=== PATIENT | male | born 1965 ===

== ENCOUNTER 2025-03-11 12:44 | Outpatient (AMB) | payer OTHER, SELFPAY ==
--- NOTE | 2025-03-11 12:51 | A.OFFPC_ITS ---
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 ?? Prior PCP:Anthony Sheridan Last office visit/CPE:? Apr 2024 Acute issue(s):? Flu Shot ?? PMHx:?afib Dr Glez, HTN, HLD, Arthritis (Dr Loredo). Lipomas. SurgHx:?Ulnar Nerve Transloc. L thumb FHx:? Mom: Breast Ca, Skin CA. Dad: Afib & Pacer, HTN, Valve regurg. SocHx:?Nonsmoker, EtOH None. No drugs PFSH Medical History (Updated 03/11/25 @ 13:35 by Kemar Mcintyre) Disorder of tendon repair Trigger finger Arthritis Afib History of palpitations Hyperlipemia Hypertension Seasonal allergies Surgical History (Updated 03/11/25 @ 13:13 by Sandra Craig CMA) H/O colonoscopy Family History (Updated 03/11/25 @ 13:15 by Sandra Craig CMA) Mother Hypertension Breast cancer Skin cancer Father Hypertension Cardiovascular disease Afib Pacemaker Social History (Updated 03/11/25 @ 13:05 by Sandra Craig CMA) Housing: House Alcohol intake: former Patient Tobacco Use Status: Never used Tobacco e-Cigarette/Vaping Use: Never Used Second Hand Smoke Exposure: No service: No Current occupational status: employed and retired Current occupational exposures/hazards: No Cognitive needs: No Hearing needs: No Vision needs: Yes Questionnaire PHQ-9 Over the last 2 weeks, how often have you been bothered by any of the following problems? 1. Little interest or pleasure in doing things: not at all 2. Feeling down, depressed, or hopeless: not at all 3. Trouble falling or staying asleep, or sleeping too much: not at all 4. Feeling tired or having little energy: not at all 5. Poor appetite or overeating: not at all 6. Feeling bad about yourself - or that you are a failure or have let yourself or your family down: not at all 7. Trouble concentrating on things, such as reading the newspaper or watching television: not at all 8. Moving or speaking so slowly that other people could have noticed. Or the opposite - being so fidgety or restless that you have been moving around a lot more than usual: not at all 9. Thoughts that you would be better off or of hurting yourself in some way: not at all Total score: 0 Depression Screening Interpretation: Negative Depression Screening Done: Yes 72980 - PHQ-9 Billing: Yes Source: Developed by Drs. Cameron Azul, Merline Alba, Domo Jarrell and colleagues, with an educational doreen from [employer] Thrive Questionnaire Date Thrive assessed: 03/11/25 I am a: Patient What is your living situation today?: I have a steady place to live Within the past 12 months, did the food you bought not last and you didn't have the money to get more?: Never true Within the past 12 months, did you worry whether your food would run out before you got money to buy more?: Never true Do you have trouble paying for medicines?: No Do you have trouble getting transportation to medical appointments?: No Do you have trouble paying your heating and electricity bill?: No Do you have trouble taking care of your child, family member or friend?: No Do you have trouble with day-to-day activities such as bathing, preparing meals, shopping, managing finances, etc.?: No Are you currently unemployed and looking for a job?: I choose not to answer this question Are you interested in more education?: I choose not to answer this question Please select the resources that you would like help with: None Currently or been in a relationship where the following occur: No concerns reported THRIVE Score: 0 AUDIT C Alcohol Use Questionnaire (AUDIT-C) 1. How often do you have a drink containing alcohol?: Never Total Score: 0 JOSE-7 AMB Questionnaire JOSE-7 Date JOSE - 7 assessed: 03/11/25 Feeling nervous, anxious, or on edge: 0 = Not at all Not being able to stop or control worryin = Not at all Worrying too much about different things: 0 = Not at all Trouble relaxin = Not at all Being so restless that it is hard to sit still: 0 = Not at all Becoming easily annoyed or irritable: 0 = Not at all Feeling afraid as if something awful might happen: 0 = Not at all Total JOSE-7 score (0-4 normal; 5-9 mild; 10-14 moderate; 15-21 severe): 0 Source: Developed by Drs. Cameron Azul, Merline Alba, Domo Jarrell and colleagues, with an educational doreen from [employer] JOSE-7 Assessment Billing JOSE-7 Assessment Tool: JOSE-7 Assessment 16913 Review of Systems Const Denies chills, Denies fatigue, Denies fever(s), Denies headache(s) and Denies weakness ENT Denies dizziness and Denies headache(s) Card Denies chest pain, Denies lightheadedness, Denies dyspnea and Denies other (Palpitations) Resp Denies cough, Denies dyspnea, Denies wheezing and Denies other ( shortness of breath) Musc Denies numbness and Denies tingling Neuro Denies dizziness, Denies headache(s), Denies numbness, Denies tingling, Denies paresthesias and Denies weakness Psych Denies anxiety and Denies depression Endo Denies fatigue Aller/Immun Denies wheezing Physical exam (Primary Care) Vital Signs: Last Vital Signs Temp 97.8 F 03/11/25 13:06 Pulse 73 03/11/25 13:06 Resp 15 03/11/25 13:06 BP 130/100 H 03/11/25 13:06 Pulse Ox 98 03/11/25 13:06 Oxygen Delivery Method Room Air 03/11/25 13:06 BMI result Body Mass Index 32.4 Tobacco/Smoking Status: Tobacco use Status Patient Tobacco Use Status Never used Tobacco 03/11/25 13:05 e-Cigarette/Vaping Use Never Used 03/11/25 13:05 Depression Screening Interpretation: Negative Currently or been in a relationship where the following occur: No concerns reported Const General: no acute distress and well developed Nutritional Appearance: well nourished Orientation/consciousness: patient oriented x3 HENMT Head: Yes normocephalic and Yes atraumatic Eyes General: appearance normal, both eyes and all related structures Pupils: Equal, round and reactive pupils present EOM: EOMs intact bilaterally Resp Effort & Inspection: normal respiratory effort Auscultation: clear to auscultation bilaterally Cardio Rate: regular rate Rhythm: regular rhythm Heart sounds: S1 normal heart sound present, S2 normal heart sound present, no gallops, no murmurs and no rubs Neuro General: patient oriented x3 and gait normal Cranial nerves: Yes Equal, round and reactive pupils present Psych Affect: normal affect Coding Level of Care Code New Pt Level 3 (25190) Diagnoses Hypertension I10 Hyperlipemia E78.5 Immunization counseling Z71. Sleep apnea G47.30 Paroxysmal A-fib I48.0 Additional Codes JOSE-7 Assessment Billing - JOSE-7 Assessment Tool: JOSE-7 Assessment 98077 ([id number]) PHQ-9 - 66425 - PHQ-9 Billing: Yes ([id number]) Assessment & Plan Assessment & Plan (1) Hypertension: Code(s): I10 - Essential (primary) hypertension Category: Medical Plan: Blood pressure elevated on presentation and still mildly above goal with relaxation. Continue metoprolol If still elevated at next visit we will discuss adjusting his medication (2) Hyperlipemia: Code(s): E78.5 - Hyperlipidemia, unspecified Category: Medical Plan: Patient takes atorvastatin Check lipids (3) Immunization counseling: Code(s): Z71.85 - Encounter for immunization safety counseling Category: Medical Plan: Due for flu shot He will be given this today (4) Sleep apnea: Code(s): G47.30 - Sleep apnea, unspecified Category: Medical Plan: Continue CPAP (5) Paroxysmal A-fib: Code(s): I48.0 - Paroxysmal atrial fibrillation Category: Medical Plan: History of paroxysmal atrial fibrillation. Managed by Dr. Glez He is on flecainide and metoprolol. [id number] score is 1 and he is not anticoagulated Heart rate is 73 Continue flecainide and metoprolol as prescribed Follow-up with Dr. Glez as recommended Also recommended avoiding caffeinated beverages and continue using CPAP for sleep apnea Orders: Orders Influenza [id number] Immunization Today Z23 - Encounter for immunization Comprehensive [place]. Panel Fast Today Z00.00 - Encounter for general adult medical examination without abnormal findings Complete Blood Count Auto Diff Today Z00.00 - Encounter for general adult medical examination without abnormal findings LDL Cholesterol Direct Today E78.5 - Hyperlipidemia, unspecified Lipid Panel Today Z00.00 - Encounter for general adult medical examination without abnormal findings Microalbumin, Random (w Creat) Today I10 - Essential (primary) hypertension Prostate Specific Antigen Scr Today Z12.5 - Encounter for screening for malignant neoplasm of prostate TSH reflex Free T4 Today Z00.00 - Encounter for general adult medical examination without abnormal findings UA CC w/rflx Micro + Cult Today Z00.00 - Encounter for general adult medical examination without abnormal findings Medications: New atorvastatin (Lipitor) 10 mg PO DAILY 90 tabs 3RF 90 days Fluarix [id number] (PF) (flu vac ts (6mos up)-PF) 0.5 mL IM ONCE 0.5 mL 0RF NS Z23 - Encounter for immunization
[2025-03-11 13:06] VITALS: BP 130/100; PULSE 73; RESP 15; TEMP 36.6; O2SAT 98; BMI 32.4
== END 2025-03-11 14:23 | disposition home or self-care (01) ==
LOC: HO.HMCFM 12:45
PROVIDERS: PCP Family Medicine; Visit Provider Family Medicine
DX: I10 Essential (primary) hypertension (principal); E78.5 Hyperlipidemia, unspecified; Z71.85 Encounter for immunization safety counseling; G47.30 Sleep apnea, unspecified; I48.0 Paroxysmal atrial fibrillation; Z23 Encounter for immunization

== ENCOUNTER → 2025-03-11 12:44 | Outpatient (BNVA) | payer OTHER, SELFPAY | PROVIDERS: PCP Family Medicine; Visit Provider Family Medicine | DX: I10 Essential (primary) hypertension (principal); E78.5 Hyperlipidemia, unspecified; G47.30 Sleep apnea, unspecified; I48.0 Paroxysmal atrial fibrillation; Z23 Encounter for immunization; Z71.85 Encounter for immunization safety counseling | CPT/HCPCS: 90471; 90656; 96127 ==